=== PATIENT | male | born 1975 | race Hispanic/Latino ===

== ENCOUNTER 2017-11-26 23:33 | Emergency (ER) | payer MEDICARE, OTHER ==
[2017-11-27 00:02] VITALS: TEMP 98.1; O2SAT 94
--- NOTE | 2017-11-27 01:18 | C.PDOC ---
History Of Present Illness 42 year old male presents to the emergency department with complaints of bilateral leg pain. Patient states that he is homeless and is requesting a place to sleep tonight. Time Seen by Provider: 11/27/17 01:18 Chief Complaint (Nursing): Lower Extremity Problem/Injury History Per: Patient History/Exam Limitations: no limitations Onset/Duration Of Symptoms: Hrs Current Symptoms Are (Timing): Still Present Severity: Moderate Pain Scale Rating Of: 4 Past Medical History Reviewed: Historical Data, Nursing Documentation, Vital Signs Vital Signs: Last Vital Signs Temp 98.1 F 11/26/17 23:58 Pulse 100 H 11/26/17 23:58 Resp 20 11/26/17 23:58 BP 126/81 11/26/17 23:58 Pulse Ox 94 L 11/27/17 02:58 - Medical History PMH: Back Problems Surgical History: No Surg Hx Family History: States: No Known Family Hx - Social History Hx Alcohol Use: No Hx Substance Use: Yes - Immunization History Hx Tetanus Toxoid Vaccination: No Hx Influenza Vaccination: No Hx Pneumococcal Vaccination: No Review Of Systems Musculoskeletal: Positive for: Leg Pain (bilateral) Physical Exam - Physical Exam Appears: Non-toxic, No Acute Distress Skin: Warm, Dry Head: Normacephalic Eye(s): bilateral: Normal Inspection Oral Mucosa: Moist Neck: Trachea Midline, Supple Chest: Symmetrical, No Tenderness Cardiovascular: Rhythm Regular, No Murmur Respiratory: No Rales, No Rhonchi, No Wheezing Back: Other (extremely kyphotic) Extremity: Other (bilateral venous stasis) Neurological/Psych: Oriented x3 ED Course And Treatment O2 Sat by Pulse Oximetry: 94 (RA) Pulse Ox Interpretation: Normal Disposition Counseled Patient/Family Regarding: Studies Performed, Diagnosis, Need For Followup - Disposition Referrals: [facility] [Outside] Disposition: HOME/ ROUTINE Disposition Time: 01:18 Condition: FAIR Forms: [facility] (French), General Discharge Instructions - Clinical Impression Clinical Impression: Leg pain - Scribe Statement The provider has reviewed the documentation as recorded by the Scribe (Osman Alvarez) Provider Attestation: All medical record entries made by the Scribe were at my direction and personally dictated by me. I have reviewed the chart and agree that the record accurately reflects my personal performance of the history, physical exam, medical decision making, and the department course for this patient. I have also personally directed, reviewed, and agree with the discharge instructions and disposition.
[2017-11-27 06:23] VITALS: BP 126/72; PULSE 78; RESP 18
== END 2017-11-27 05:15 | disposition home or self-care (01) ==
LOC: C.ER 23:33
DX: M79.605 Pain in left leg (principal); M79.604 Pain in right leg; Z59.0 Homelessness

== ENCOUNTER 2018-01-12 05:28 | Emergency (ER) | payer MEDICARE, OTHER ==
[2018-01-12 06:06] VITALS: O2SAT 94
[2018-01-12] MEDS ORDERED: Albuterol-Ipratrop 3 mg / 0.5 (3 ml) UD INH STA (06:41)
[2018-01-12] MEDS ORDERED: Piperacillin/Tazobact 3.375 gm 100 ML IVPB STA (06:42)
--- NOTE | 2018-01-12 06:42 | C.PDOC ---
Time Seen by Provider: 01/12/18 06:35 Chief Complaint (Nursing): Cough, Cold, Congestion Past Medical History Vital Signs: Last Vital Signs Temp 99 F 01/12/18 05:40 Pulse 106 H 01/12/18 05:40 Resp 22 01/12/18 05:40 BP 135/80 01/12/18 05:40 Pulse Ox 94 L 01/12/18 06:06 - Medical History PMH: Back Problems Surgical History: Back Surgery Family History: States: Unknown Family Hx - Social History Hx Alcohol Use: No Hx Substance Use: Yes - Immunization History Hx Tetanus Toxoid Vaccination: No Hx Influenza Vaccination: No Hx Pneumococcal Vaccination: No ED Course And Treatment O2 Sat by Pulse Oximetry: 94 Disposition - Disposition Forms: [facility] (Malay)
[2018-01-12] MEDS ORDERED: Clindamycin 600mg/50ml D5W 600 MG/50 ML VIAL IVPB SCH (06:45)
--- NOTE | 2018-01-12 06:47 | C.PDOC ---
Addendum entered and electronically signed by Erika Huang APN 01/13/18 07:35: Addendum Addendum: 01/13/18 07:32 Patient ambulating without difficulty, lungs clear H/O IVDA, and elevated WBC, Treated with IV antibiotics Patient refused admission and request discharge. Patient is homeless patient signed AMA advised to follow up at clinic and return if any increase symptoms Addendum entered and electronically signed by Erika Huang APN 01/12/18 09:33: Disposition Counseled Patient/Family Regarding: Studies Performed, Need For Followup, Rx Given Clinical Impression: Cough, Dental abscess Disposition: AGAINST MEDICAL ADVICE Disposition Time: 07:09 Condition: FAIR Additional Instructions: Follow up at clinic for further evaluation Prescriptions: Clindamycin [Cleocin] 300 mg PO Q8 #21 cap Instructions: Viral Upper Respiratory Infection, Adult (DC), Cough, Adult (DC), Dental Pain Referrals: [facility] [Outside] [facility] [Outside] [facility] [Outside] Stand Alone Forms: [facility] (Turkish) - POA Present On Arrival: None Original Note: History Of Present Illness 43 year old male with a Hx of ankylosing spondylitis presents to the ER with a complaint of cough, a bad cold, and some SOB for the past 3 days. Patient is unclear if he has recently taken antibiotics. Patient also reports some swelling to the right side of his face for the past 3 days. Denies fever, chills, nausea, or vomiting. pt is active heroin iv durg user, 'many' bags per day. Time Seen by Provider: 01/12/18 06:35 Chief Complaint (Nursing): Cough, Cold, Congestion History Per: Patient History/Exam Limitations: no limitations Onset/Duration Of Symptoms: Days Current Symptoms Are (Timing): Still Present Associated Symptoms: Cough, Other (SOB, Cold symptoms). denies: Fever (SOB, Cold symptoms, Facial swelling), Chills, Nausea, Vomiting Ear Symptoms: Bilateral: None Recent travel outside of the [place]: No Past Medical History Reviewed: Historical Data, Nursing Documentation, Vital Signs Vital Signs: Last Vital Signs Temp 99 F 01/12/18 05:40 Pulse 106 H 01/12/18 05:40 Resp 22 09/26/18 05:40 BP 135/80 01/12/18 05:40 Pulse Ox 94 L 01/12/18 07:02 - Medical History PMH: Back Problems Surgical History: Back Surgery Family History: States: Unknown Family Hx - Social History Hx Alcohol Use: No Hx Substance Use: Yes - Immunization History Hx Tetanus Toxoid Vaccination: No Hx Influenza Vaccination: No Hx Pneumococcal Vaccination: No Review Of Systems Constitutional: Negative for: Fever, Chills ENT: Positive for: Nose Discharge, Nose Congestion, Other (Facial swelling) Cardiovascular: Negative for: Chest Pain, Palpitations Respiratory: Positive for: Cough, Shortness of Breath Gastrointestinal: Negative for: Nausea, Vomiting Physical Exam - Physical Exam Appears: Non-toxic, Unkempt Skin: Normal Color, Warm, Dry, Other (multiple track ulloa on both arms) Head: Atraumatic, Normacephalic, Swelling (Right facial) Eye(s): bilateral: Normal Inspection Oral Mucosa: Moist Teeth: Other (Poor dentition) Throat: No Erythema, No Exudate Neck: Normal ROM, Supple Chest: Symmetrical, No Tenderness Cardiovascular: Rhythm Regular Respiratory: Decreased Breath Sounds, No Rales, No Rhonchi, Wheezing (scattered), Other (Coarse breath sounds) Gastrointestinal/Abdominal: Soft, No Tenderness Back: Other (Severe kyphosis) Extremity: Normal ROM (x4) Neurological/Psych: Oriented x3, Normal Speech ED Course And Treatment O2 Sat by Pulse Oximetry: 94 (room air) Pulse Ox Interpretation: Normal Medical Decision Making Medical Decision Making: Blood work, CXR, and urinalysis ordered. Duoneb, zosyn, clinda, and tylenol administered. Disposition - Disposition Disposition Time: 07:09 Condition: FAIR Forms: [facility] (Turkish) - Clinical Impression Clinical Impression: Cough, Dental abscess - Scribe Statement The provider has reviewed the documentation as recorded by the Scribe Gonzales Castro All medical record entries made by the Scribe were at my direction and personally dictated by me. I have reviewed the chart and agree that the record accurately reflects my personal performance of the history, physical exam, medical decision making, and the department course for this patient. I have also personally directed, reviewed, and agree with the discharge instructions and disposition. Physician Patient Turnover Patient Signed Over To: Erika Huang Handoff Comments: f/u labs, cxr and dispo accordingly
[2018-01-12] MEDS ORDERED: Albuterol-Ipratrop 3 mg / 0.5 (3 ml) UD ONE (06:53)
[2018-01-12 07:04] LABS: BASO # 0.1 K/uL (0.0-0.2); HEMOGLOBIN 10.1 g/dL (12.0-18.0); LYMPH # 2.2 K/uL (1.0-4.3); RBC 3.69 Mil/uL (4.40-5.90); RED CELL DISTRIBUTION WIDTH 13.9 % (11.5-14.5)
[2018-01-12] MEDS ORDERED: Piperacillin/Tazobact 3.375 gm 100 ML IVPB ONE (07:04)
[2018-01-12 07:07] LABS: BASO % 0.7 % (0.0-2.0); EOS # 0.1 K/uL (0.0-0.7); EOS % 0.8 % (0.0-4.0); LYMPH % 13.3 % (20.0-40.0); MEAN CELL VOLUME 83.7 fL (80.0-94.0); MEAN CORPUSCULAR HEMOGLOBIN 27.3 pg (27.0-31.0); MEAN CORPUSCULAR HGB CONC 32.5 g/dL (33.0-37.0); MEAN PLATELET VOLUME 8.3 fL (7.2-11.7); MONO # 1.3 K/uL (0.0-0.8); MONO % 7.8 % (0.0-10.0); NEUT # 12.8 K/uL (1.8-7.0); NEUT % 77.4 % (50.0-75.0); WHITE BLOOD COUNT 16.6 K/uL (4.8-10.8)
[2018-01-12 07:25] LABS: URINE BILIRUBIN NEGATIVE (NEGATIVE); URINE BLOOD NEGATIVE (NEGATIVE); URINE CLARITY Clear (Clear); URINE COLOR Yellow (YELLOW); URINE GLUCOSE (UA) NORMAL (Normal); URINE LEUKOCYTE ESTERASE NEG Leu/uL (Negative); URINE PROTEIN NEGATIVE (NEGATIVE)
[2018-01-12 07:25] LABS: ALB/GLOB RATIO 0.9 (1.0-2.1); ALBUMIN 3.6 g/dL (3.5-5.0); ALT/SGPT 94 U/L (21-72); AST/SGOT 63 U/L (17-59); BLOOD UREA NITROGEN 7 mg/dL (9-20); CALCIUM 8.6 mg/dl (8.6-10.4); GFR NON-AFRICAN AMERICAN > 60
[2018-01-12] MEDS ORDERED: Sodium Chloride 0.9% 1,000 ML IV ONE (08:05)
[2018-01-12] MEDS ORDERED: Sodium Chloride 0.9% 1,000 ML ONE (08:24)
[2018-01-12 09:21] VITALS: BP 133/88; PULSE 89; RESP 16; TEMP 97.6
--- NOTE | 2018-01-12 11:00 | RAD ---
Date of service: 01/12/2018 PROCEDURE: CHEST RADIOGRAPH, 1 VIEW HISTORY: Pneumonia COMPARISON: None available. FINDINGS: LUNGS: Clear. PLEURA: No pneumothorax or pleural fluid seen. CARDIOVASCULAR: No radiographic findings to suggest acute or significant cardiovascular disease. OSSEOUS STRUCTURES: No significant abnormalities. Old healed posterior lateral and contiguous left rib fractures. VISUALIZED UPPER ABDOMEN: Normal. OTHER FINDINGS: None. IMPRESSION: No active disease.
== END 2018-01-12 09:21 | disposition left against medical advice (07) ==
LOC: C.ER 05:28
DX: K04.7 Periapical abscess without sinus (principal); R05 Cough
CPT/HCPCS: 71045; 80053; 81001; 83605; 85025; 87040; 96361; 96365; 99284; J2543; J7030